=== PATIENT | male | born 1970 | race Caucasian/White ===

== ENCOUNTER 2020-07-13 16:00 | Observation (INO) | payer MEDICARE ==
[~2020-07-13] VITALS: Ht 170.2 cm; Wt 117.5 kg
[2020-07-13] MEDS ORDERED: SODIUM CHLORIDE 0.9% 1000ML 1,000 ML IV STA (16:38)
[2020-07-13 17:13] LABS: BASOPHILS % 0.2 % (0.0-1.0); EOSINOPHILS # (AUTO) 0.1 (0.0-0.4); HEMATOCRIT 50.1 % (38.2-49.6); LYMPHOCYTES % 10.3 % (18.0-39.1); MEAN CORPUSCULAR HGB CONC 33.9 g/dL (31-35); MEAN CORPUSCULAR VOLUME 94.4 fL (81-99); MONOCYTES % 10.3 % (4.4-11.3); NEUTROPHILS # (AUTO) 7.7 (2.1-6.9); NEUTROPHILS % 77.9 % (38.7-80.0); PLATELET COUNT 169 x10e3/uL (140-360); RED BLOOD COUNT 5.31 x10e6/uL (4.3-5.7); RED CELL DISTRIBUTION WIDTH 13.6 % (11.7-14.4)
[2020-07-13 17:26] LABS: INR 0.89; PROTHROMBIN TIME 12.5 seconds (11.9-14.5)
[2020-07-13 17:27] LABS: PARTIAL THROMBOPLASTIN TIME 30.3 seconds (23.8-35.5)
[2020-07-13 17:34] LABS: ALANINE AMINOTRANSFERASE 33 IU/L (0-55); ALKALINE PHOSPHATASE 83 IU/L (40-150); ANION GAP 20.8 mmol/L (8-16); BLOOD UREA NITROGEN 9 mg/dL (7-26); BUN/CREATININE RATIO 10 (6-25); CALCIUM 9.3 mg/dL (8.4-10.2); CARBON DIOXIDE 23 mmol/L (22-29); CHLORIDE 99 mmol/L (98-107); CREATINE KINASE 99 IU/L (30-200); CREATININE, SERUM 0.94 mg/dL (0.72-1.25); EST GLOMERULAR FILTRATION RATE > 60 ML/MIN (60-); GLUCOSE 89 mg/dL (74-118); POTASSIUM 4.8 mmol/L (3.5-5.1); SODIUM 138 mmol/L (136-145)
[2020-07-13] MEDS ORDERED: SODIUM CHLORIDE 0.9% 50ML 50 ML ONE (18:33)
[2020-07-13] MEDS ORDERED: IOPAMIDOL 370 MG/ML 200 ML INFUS..BTL INJ ONE (18:34)
[2020-07-13 18:47] LABS: BILIRUBIN,URINE SMALL (NEGATIVE); CLARITY,URINE SL CLOUDY (CLEAR); COLOR,URINE AMBER (YELLOW); KETONES,URINE TRACE (NEGATIVE); LEUKOCYTE ESTERASE ,URINE NEGATIVE (NEGATIVE); NITRITE,URINE NEGATIVE (NEGATIVE); PROTEIN,URINE DIPSTICK 1+ (NEGATIVE); URINE UROBILINOGEN 0.2 mg/dL (0.2 - 1)
--- NOTE | 2020-07-13 18:53 | Diagnostic Imaging Report ---
EXAM: CT Abdomen and Pelvis WITH contrast INDICATION: LOEWR ABD PAIN, GI BLEED COMPARISON: None. TECHNIQUE: Abdomen and pelvis were scanned utilizing a multidetector helical scanner from the lung base to the pubic symphysis after administration of IV contrast. Coronal and sagittal reformations were obtained. Dose modulation, iterative reconstruction, and/or weight based adjustment of the mA/kV was utilized to reduce the radiation dose to as low as reasonably achievable. Routine protocol was performed. Scan was performed when during portal venous phase. IV CONTRAST: 150 mL of Omnipaque 300 ORAL CONTRAST: Water COMPLICATIONS: None RADIATION DOSE: Total DLP: 849.13 mGy-cm Estimated effective dose: (DLP x 0.015 x size factor) mSv CTDIvol has been reviewed. It is below the limits set by the Radiation Protocol Committee (RPC). FINDINGS: LINES and TUBES: None. LOWER THORAX: Unremarkable HEPATOBILIARY: No focal hepatic lesions. No biliary ductal dilation. GALLBLADDER: No radio-opaque stones or sludge. No gallbladder wall thickening. SPLEEN: No splenomegaly. No focal splenic lesion. PANCREAS: No focal masses or ductal dilatation. ADRENALS: No adrenal nodules KIDNEYS/URETERS: Kidneys enhance symmetrically. No hydronephrosis. No cystic or solid mass lesions. No stones. GI TRACT: There is diffuse wall thickening of the colon with minimal adjacent stranding compatible with colitis. No abnormal distention or evidence of bowel obstruction. PELVIC ORGANS/BLADDER: The bladder is unremarkable. LYMPH NODES: No lymphadenopathy. VESSELS: No aortic aneurysm or dissection. PERITONEUM / RETROPERITONEUM: No free air or fluid. BONES: Unremarkable. SOFT TISSUES: Unremarkable. IMPRESSION: Diffuse wall thickening of the colon with minimal adjacent stranding compatible with colitis. Signed by: Jonny Mueller MD on 07/13/2020 6:50 PM
[2020-07-13 18:59] LABS: BACTERIA,URINE MODERATE /HPF; EPITHELIAL CELLS,URINE FEW /LPF
[2020-07-13 19:00] LABS: AMORPHOUS SEDIMENT,URINE MODERATE (FEW)
[2020-07-13] MEDS ORDERED: ONDANSETRON HCL INJ 2MG/ML 2ML 2 MG/ML VIAL IV PRN ×2 (19:30→22:45)
[2020-07-13] MEDS ORDERED: MORPHINE SULFATE INJ 4 MG/ML INJ 1ML IV PRN (19:30)
--- NOTE | 2020-07-13 19:37 | NUR ---
RECEIEVED PATIENT IN ROOM
[2020-07-13] MEDS ORDERED: PANTOPRAZOLE 40 MG 10ML VIAL IV STA (19:38)
[2020-07-13] MEDS ORDERED: ONDANSETRON HCL INJ 2MG/ML 2ML 2 MG/ML VIAL IV STA (19:39)
--- NOTE | 2020-07-13 19:52 | Emergency Department Note ---
History of Present Illnes History of Present Illness Chief Complaint: Abdominal Complaints History of Present Illness This is a 49 year old male DIARRHEA X 2 DAYS WITH LOWER QUADRANT PAIN, APPROX 7 EPISODES. 1 HR PRIOR TO ARRIVAL HAD BRIGHT RED BLOOD. DENIES ANY N/V. Historian: Patient Arrival Mode: Car Ticket Agent Required: No Onset (how long ago): day(s) (2) Location: ABDOMEN Quality: PAIN/CRAMPING WITH DIARRHEA Radiation: Reports non-radiation Severity: moderate Onset quality: gradual Timing of current episode: intermittent Progression: waxing and waning Chronicity: new Context: Denies recent illness Relieving factors: none Exacerbating factors: none Associated symptoms: Reports denies other symptoms Treatments prior to arrival: none Past Medical/Family History Physician Review I have reviewed the patient's past medical and family history. Any updates have been documented here. Past Medical History Recent Fever: No Clinical Suspicion of Infectio: No New/Unexplained Change in Ment: No Past Medical History: CHF, Hepatitis C, Kidney Stones Other Medical History: CIRRHOSIS COPD HEP C Other Surgery: LITHOTRYPSY Social History Smoking Cessation: Current every day smoker Counseling Performed: No Alcohol Use: Occasional Any Illegal Drug Use: No TB Exposure/Symptoms: No Physically hurt or threatened: No Family History Family history of heart diseas: No Other Any Pre-Existing Lines (PICC,: No Review of Systems Review of Systems Constitutional: Reports no symptoms EENTM: Reports no symptoms Cardiovascular: Reports no symptoms Respiratory: Reports no symptoms Gastrointestinal: Reports as per HPI Genitourinary: Reports no symptoms Musculoskeletal: Reports no symptoms Integumentary: Reports no symptoms Neurological: Reports no symptoms Psychological: Reports no symptoms Endocrine: Reports no symptoms Hematological/Lymphatic: Reports no symptoms Physical Exam Related Data Allergies: Coded Allergies: No Known Allergies (Unverified , 07/13/20) Triage Vital Signs Vital Signs Date Time Temp Pulse Resp B/P (MAP) Pulse Ox O2 Delivery O2 Flow Rate FiO2 07/13/20 16:30 98.8 99 18 142/102 98 Room Air Vital signs reviewed: Yes Physical Exam CONSTITUTIONAL Constitutional: Present well-developed, Present well-nourished HENT HENT: Present normocephalic, Present atraumatic, Present oropharynx clear/moist, Present nose normal HENT L/R: Present left ext ear normal, Present right ext ear normal EYES Eyes: Reports PERRL, Reports conjunctivae normal NECK Neck: Present ROM normal PULMONARY Pulmonary: Present effort normal, Present breath sounds normal CARDIOVASCULAR Cardiovascular: Present regular rhythm, Present heart sounds normal, Present capillary refill normal, Present normal rate GASTROINTESTINAL Abdominal: Present soft, Present nontender, Present bowel sounds normal, Prese nt tender (MILD LOWER ABD TENDERNESS WITHOUT R/G); Absent guarding, Absent rebound, Absent left CVA tenderness, Absent right CVA tenderness GENITOURINARY Genitourinary: Present exam deferred SKIN Skin: Present warm, Present dry MUSCULOSKELETAL Musculoskeletal: Present ROM normal NEUROLOGICAL Neurological: Present alert, Present oriented x 3, Present no gross motor or sensory deficits PSYCHOLOGICAL Psychological: Present mood/affect normal, Present judgement normal Results Laboratory Result Diagram: 07/13/20 1639 07/13/20 1639 Laboratory Laboratory Tests Test 07/13/20 16:48 07/13/20 16:39 Urine Color Lisseth (YELLOW) Urine Clarity Sl cloudy (CLEAR) Urine pH 6 (5 - 7) Urine Specific Clyman 1.025 (1.010-1.025) Urine Protein 1+ (NEGATIVE) Urine Glucose (UA) Negative (NEGATIVE) Urine Ketones Trace (NEGATIVE) Urine Blood Negative (NEGATIVE) Urine Nitrite Negative (NEGATIVE) Urine Bilirubin Small (NEGATIVE) Urine Urobilinogen 0.2 mg/dL (0.2 - 1) Urine Leukocyte Esterase Negative (NEGATIVE) Urine RBC None /HPF (0-5) Urine WBC None /HPF (0-5) Urine Epithelial Cells Few /LPF (NONE) Urine Amorphous Sediment Moderate (FEW) Urine Bacteria Moderate /HPF (NONE) Urine Sperm Present (NONE) White Blood Count 9.86 x10e3/uL (4.8-10.8) Red Blood Count 5.31 x10e6/uL (4.3-5.7) Hemoglobin 17.0 g/dL (14.0-18.0) Hematocrit 50.1 % (38.2-49.6) Mean Corpuscular Volume 94.4 fL (81-99) Mean Corpuscular Hemoglobin 32.0 pg (28-32) Mean Corpuscular Hemoglobin Concent 33.9 g/dL (31-35) Red Cell Distribution Width 13.6 % (11.7-14.4) Platelet Count 169 x10e3/uL (140-360) Neutrophils (%) (Auto) 77.9 % (38.7-80.0) Lymphocytes (%) (Auto) 10.3 % (18.0-39.1) Monocytes (%) (Auto) 10.3 % (4.4-11.3) Eosinophils (%) (Auto) 1.0 % (0.0-6.0) Basophils (%) (Auto) 0.2 % (0.0-1.0) Neutrophils # (Auto) 7.7 (2.1-6.9) Lymphocytes # (Auto) 1.0 (1.0-3.2) Monocytes # (Auto) 1.0 (0.2-0.8) Eosinophils # (Auto) 0.1 (0.0-0.4) Basophils # (Auto) 0.0 (0.0-0.1) Absolute Immature Granulocyte (auto 0.03 x10e3/uL (0-0.1) Prothrombin Time 12.5 seconds (11.9-14.5) Prothromb Time International Ratio 0.89 Activated Partial Thromboplast Time 30.3 seconds (23.8-35.5) Sodium Level 138 mmol/L (136-145) Potassium Level 4.8 mmol/L (3.5-5.1) Chloride Level 99 mmol/L (98-107) Carbon Dioxide Level 23 mmol/L (22-29) Anion Gap 20.8 mmol/L (8-16) Blood Urea Nitrogen 9 mg/dL (7-26) Creatinine 0.94 mg/dL (0.72-1.25) Estimat Glomerular Filtration Rate > 60 ML/MIN (60-) BUN/Creatinine Ratio 10 (6-25) Glucose Level 89 mg/dL (74-118) Calcium Level 9.3 mg/dL (8.4-10.2) Total Bilirubin 0.7 mg/dL (0.2-1.2) Aspartate Amino Transf (AST/SGOT) 47 IU/L (5-34) Alanine Aminotransferase (ALT/SGPT) 33 IU/L (0-55) Alkaline Phosphatase 83 IU/L (40-150) Creatine Kinase 99 IU/L (30-200) Creatine Kinase MB 1.40 ng/mL (0-5.0) Troponin I 0.015 ng/mL (0-0.300) Total Protein 7.9 g/dL (6.5-8.1) Albumin 4.0 g/dL (3.5-5.0) Globulin 3.9 g/dL (2.3-3.5) Albumin/Globulin Ratio 1.0 (0.8-2.0) Lab results reviewed: Yes Imaging Imaging results reviewed: Yes Assessment & Plan Medical Decision Making MDM ABD PAIN, DIARRHEA, BRBPR - CBC, CHEM, PT/PTT, UA, CT ABD/PELVIS - EVAL FOR SIGNIFICANT GI BLEED WITH ANEMIA, COAGULOPATHY, RENAL INSUFF, INCR LFT'S, COLITIS, DIVERTICULITIS, BOWEL OBSTRUCTION Reassessment Reassessment ADMIT TO [facility] (ON-CALL) Assessment & Plan Final Impression: (1) Colitis (2) GI bleed Depart Disposition: ADMITTED Last Vital Signs Date Time Temp Pulse Resp B/P (MAP) Pulse Ox O2 Delivery O2 Flow Rate FiO2 07/13/20 19:40 110 22 138/103 97 07/13/20 16:30 98.8 Room Air Medications in the ED Pantoprazole Sodium 80 mg ONCE STAT IV ; Start 07/13/20 at 19:38; Stop 07/13/20 at 19:39; Status DC Ondansetron HCl 4 mg ONCE STAT IV ; Start 07/13/20 at 19:39; Stop 07/13/20 at 19:40; Status DC Sodium Chloride 1,000 ml @ 0 mls/hr Q0M STAT IV ; Start 07/13/20 at 16:38; Stop 07/13/20 at 16:44; Status DC Sodium Chloride 50 ml @ ud STK-MED ONCE .ROUTE ; Start 07/13/20 at 18:33; Stop 07/13/20 at 18:28; Status DC Iopamidol 74,000 mg STK-MED ONCE INJ ; Start 07/13/20 at 18:34; Stop 07/13/20 at 18:28; Status DC Piperacillin Sod/ Tazobactam Sod 50 ml @ 100 mls/hr 0200,0800,1400,2000 IV ; Start 07/13/20 at 20:00; Stop 07/20/20 at 19:59 Metronidazole/ Sodium Chloride 100 ml @ 100 mls/hr Q6H IV ; Start 07/13/20 at 19:30; Stop 07/20/20 at 19:29; Status UNV Sodium Chloride 1,000 ml @ 100 mls/hr Q10H IV ; Start 07/13/20 at 19:30; Stop 08/12/20 at 19:29 Morphine Sulfate 4 mg Q4H PRN IV SEVERE PAIN (7-10); Start 07/13/20 at 19:30; Stop 07/20/20 at 19:29; Status UNV Ondansetron HCl 4 mg Q4H PRN IV NAUSEA; Start 07/13/20 at 19:30; Stop 08/12/20 at 19:29 Pantoprazole Sodium 40 mg Q12HR IV ; Start 07/13/20 at 21:00; Stop 08/12/20 at 20:59 BRANDIN ALEGRIA MD Jul 13, 2020 19:52
[2020-07-13] MEDS ORDERED: PIPER-TAZ 3.375 GM 50 ML IV SCH (20:00)
[2020-07-13] MEDS: PANTOPRAZOLE 40 MG 10ML VIAL IV SCH (20:24)
--- OUTSIDE RECORDS SUMMARY | 2020-07-13 20:26 | XMS REPORT | Continuity of Care Document ---
Author Author [facility] t Organization [facility] Address [address] [place] [address] Dr. Guerra [address] [place] [phone] Phone Unavailable Care Team Providers Care Shove Up Name Role Phone Juan C ALEGRIA Attphys Unavailable Problems This patient has no known problems. Allergies, Adverse Reactions, Alerts This patient has no known allergies or adverse reactions. Medications This patient has no known medications. Procedures This patient has no known procedures. Results Test Description Test Time Test Comments Results Result Comments Source CT ABDOMEN/PELVIS W 2020-07-13 18:47:00 [place] [address] Patient Name: CAMILA GONSALVES MR #: [id number] : 1970 Age/Sex: 49/M Req #: [id number] Adm Physician: Ordered by: BRANDIN ALEGRIA MD Report #: [id number] Location: ER Room/Bed: Procedure: [id number] CT/CT ABDOMEN/PELVIS W Exam Date: 07/13/20 Exam Time: 1813 REPORT STATUS: Signed EXAM: CT Abdomen and Pelvis WITH contrast INDICATION: LOEWR ABD PAIN, GI BLEED COMPARISON: None. TECHNIQUE: Abdomen and pelvis were scanned utilizing a multidetector helical scanner from the lung base to the pubic symphysis after administration of IV contrast. Coronal and sagittal reformations were obtained. Dose modulation, iterative reconstruction, and/or weight based adjustment of the mA/kV was utilized to reduce the radiation dose to as low as reasonably achievable. Routine protocol was performed. Scan was performed when during portal venous phase. IV CONTRAST: 150 mL of Omnipaque 300 ORAL CONTRAST: Water COMPLICATIONS: None RADIATION DOSE: Total DLP: 849.13 mGy-cm Estimated effective dose: (DLP x 0.015 x size factor) mSv CTDIvol has been reviewed. It is below the limits set by the Radiation Protocol Committee (RPC). FINDINGS: LINES and TUBES: None. LOWER THORAX: Unremarkable HEPATOBILIARY: No focal hepatic lesions. No biliary ductal dilation. GALLBLADDER: No radio-opaque stones or sludge. No gallbladder wall thickening. SPLEEN: No splenomegaly. No focal splenic lesion. PANCREAS: No focal masses or ductal dilatation. ADRENALS: No adrenal nodules KIDNEYS/URETERS: Kidneys enhance symmetrically. No hydronephrosis. No cystic or solid mass lesions. No stones. GI TRACT: There is diffuse wall thickening of the colon with minimal adjacent stranding compatible with colitis. No abnormal distention or evidence of bowel obstruction. PELVIC ORGANS/BLADDER: The bladder is unremarkable. LYMPH NODES: No lymphadenopathy. VESSELS: No aortic aneurysm or dissection. PERITONEUM / RETROPERITONEUM: No free air or fluid. BONES: Unremarkable. SOFT TISSUES: Unremarkable. IMPRESSION: Diffuse wall thickening of the colon with minimal adjacent stranding compatible with colitis. Signed by: Jonny Crespo MD on 07/13/2020 6:50 PM Dictated By: JONNY CRESPO MD 49 Transcribed By: DEX on 07/13/201849 COPY TO: BRANDIN ALEGRIA MD
--- NOTE | 2020-07-13 21:10 | NUR ---
RECEIVED REPORT FROM DANYELL GUNTER RN, PATIENT AOX3, PENDING ARRIVAL TO THE FLOOR FROM ER, C/O AB PAIN X 3 DAYS, BLOODY DIARRHEA, POSS GI BLEED
--- NOTE | 2020-07-13 21:30 | NUR ---
PATIENT ARRIVED TO THE FLOOR VIA WHEELCHAIR ESCORTED BY CEMETERY WORKERREFUGIO CHILD, PATIENT AOX4, NO DISTRESS NOTED, NO TELEMETRY IN PLACE, CARDIAC ENZYMES x 1 NEGATIVE, DENIES CHEST PAIN, C/O AB PAIN 02/20, SKIN WARM DRY INTAC, ORIENTED TO STAFF, POLICIES AND ROOM, CALL LIGHT WITHIN REACH, IV PATENT RAC #20G, FLUSHES WELL
[2020-07-13] MEDS: METRONIDAZOLE 500MG/NS 100ML 100 ML IV SCH (21:59)
[2020-07-13] MEDS: SODIUM CHLORIDE 0.9% 1000ML 1,000 ML IV SCH (21:59)
[2020-07-13 22:15] VITALS: BP 133/90
[2020-07-13] MEDS ORDERED: DOCUSATE SODIUM 100 MG CAP PO PRN (22:45)
[2020-07-13] MEDS ORDERED: HYDRALAZINE HCL 20 MG/ML VIAL IV PRN (22:45)
[2020-07-13] MEDS ORDERED: ACETAMINOPHEN 325 MG TAB PO PRN (22:45)
[2020-07-13] MEDS ORDERED: MELATONIN 5 MG TABLET PO PRN (22:45)
[2020-07-13 22:55] VITALS: BP 133/90
[2020-07-13 22:56] VITALS: BP 133/90
--- NOTE | 2020-07-13 23:00 | NUR ---
MD SUN CONSULTED FOR PT
[2020-07-13] MEDS: CIPROFLOXACIN 400 MG/D5W 200ML 200 ML IV SCH (23:21)
[2020-07-14] VITALS (9 sets, daily range): BP systolic 119–142; BP diastolic 89–103
[2020-07-14] MEDS: METRONIDAZOLE 500MG/NS 100ML 100 ML IV SCH ×4 (03:30→20:45)
[2020-07-14] MEDS: SODIUM CHLORIDE 0.9% 1000ML 1,000 ML IV SCH ×2 (03:45→17:11)
[2020-07-14] MEDS ORDERED: CITRATE OF MAGNESIA 300ML BOTTLE PO ONE ×2 (05:00→07:00)
--- NOTE | 2020-07-14 05:00 | NUR ---
bowel prep started per MD SUN order, first bottle of mag citrate given PO, pt cooperative with plan of care, tolerated well, reported BM still brown and runny
[2020-07-14 05:26] LABS: BASOPHILS % 0.2 % (0.0-1.0); EOSINOPHILS # (AUTO) 0.1 (0.0-0.4); EOSINOPHILS % 0.8 % (0.0-6.0); HEMATOCRIT 46.8 % (38.2-49.6); HEMOGLOBIN 15.7 g/dL (14.0-18.0); LYMPHOCYTES # (AUTO) 0.6 (1.0-3.2); MEAN CORPUSCULAR HEMOGLOBIN 32.5 pg (28-32); MEAN CORPUSCULAR HGB CONC 33.5 g/dL (31-35); MEAN CORPUSCULAR VOLUME 96.9 fL (81-99); MONOCYTES # (AUTO) 1.1 (0.2-0.8); MONOCYTES % 12.4 % (4.4-11.3); NEUTROPHILS % 79.4 % (38.7-80.0); PLATELET COUNT 144 x10e3/uL (140-360); RED BLOOD COUNT 4.83 x10e6/uL (4.3-5.7); RED CELL DISTRIBUTION WIDTH 13.3 % (11.7-14.4)
[2020-07-14 05:51] LABS: ALANINE AMINOTRANSFERASE 26 IU/L (0-55); ALKALINE PHOSPHATASE 73 IU/L (40-150); ANION GAP 14.1 mmol/L (8-16); BLOOD UREA NITROGEN 7 mg/dL (7-26); BUN/CREATININE RATIO 8 (6-25); CALCIUM 8.6 mg/dL (8.4-10.2); CARBON DIOXIDE 21 mmol/L (22-29); CHLORIDE 104 mmol/L (98-107); CREATININE, SERUM 0.84 mg/dL (0.72-1.25); EST GLOMERULAR FILTRATION RATE > 60 ML/MIN (60-); GLUCOSE 117 mg/dL (74-118); POTASSIUM 3.1 mmol/L (3.5-5.1); SODIUM 136 mmol/L (136-145)
--- NOTE | 2020-07-14 07:00 | NUR ---
bowel prep continued for possible colonoscopy today with MD Cline, pt educated on bowel prep, endorsed to dayshift RN to continue monitoring, consent signed and placed in chart
[2020-07-14 07:37] LABS: ALBUMIN 4.2 g/dL (3.5-5.0); ALBUMIN/GLOBULIN RATIO 1.8 (0.8-2.0)
[2020-07-14] MEDS: PANTOPRAZOLE 40 MG 10ML VIAL IV SCH ×2 (10:01→20:46)
[2020-07-14] MEDS: CIPROFLOXACIN 400 MG/D5W 200ML 200 ML IV SCH ×2 (10:45→22:45)
--- NOTE | 2020-07-14 13:46 | NUR ---
pt off unit for procedure.
[2020-07-14] MEDS ORDERED: POTASSIUM CHLORIDE 20 MEQ TAB CR PO ONE (15:15)
--- NOTE | 2020-07-14 16:13 | Diagnostic Imaging Report ---
EXAM: US ABDOMEN LIMITED DATE: 07/14/2020 1:59 PM INDICATION: ^CIRRHOSIS COMPARISON: CT dated 07/13/2020 TECHNIQUE: Transverse and longitudinal daniel scale and color doppler sonographic images of the right upper quadrant were obtained. FINDINGS: LIVER 18.6 cm in the right midclavicular line. Liver is diffusely echogenic with normal contour, no masses. GALLBLADDER No gallbladder wall thickening, distension, stone, or pericholecystic fluid. Negative reported sonographic Ramsey's sign. BILE DUCTS No intra nor extra-hepatic biliary dilation. Common bile duct measures 0.3cm PANCREAS: Limited visualization RIGHT KIDNEY: 11.3 cm Echogenicity: Normal Collecting System: No hydronephrosis Stones: None Cyst/Mass: None VESSELS: Aorta: Visualized portions are within normal size limits Inferior Vena Cava: Visualized portions are normal Main Portal Vein: 1.0 cm, normal size with hepatopetal flow. FREE FLUID: None IMPRESSION: 1. Echogenic enlarged liver can be seen in patients with hepatic steatosis. No suspicious mass. 2. Negative for cholelithiasis or biliary dilatation. Signed by: Alex Campos MD on 07/14/2020 4:09 PM
[2020-07-14 16:26] LABS: WBC,FECAL (FECAL LACTOFERRIN) POSITIVE (NEGATIVE)
--- NOTE | 2020-07-14 16:33 | Operative Report ---
DATE OF PROCEDURE: 07/14/2020 SURGEON: Elliott Cline MD PROCEDURE: Colonoscopy with polypectomy and biopsies. INDICATIONS FOR COLONOSCOPY: Rectal bleeding, diarrhea. MEDICATIONS: The patient was done under MAC, please see anesthesiologist's note. PROCEDURE IN DETAIL: With the patient in the left lateral decubitus position, a flexible fiberoptic Olympus colonoscope was inserted into the rectum with ease and advanced all the way to the cecum. Prep overall was suboptimal, but visualization was fair. Due to the patient's severe obstructive apnea and desaturation, exam overall was suboptimal. The scope was then withdrawn slowly, whatever was visualized the mucosa overlying the cecum, ascending colon, and transverse colon grossly appeared to be unremarkable. There was some patchy mild inflammatory changes in the left colon and random biopsies were obtained. Two polyps were hot snared and one polyp was hot biopsied from the descending colon. One polyp was hot snared from the rectosigmoid area. More prominent inflammatory findings were noted in the rectum and biopsies were obtained. The scope was then retroflexed into the distal rectum and small internal hemorrhoids were noted, none of which was actively bleeding. The scope was then straightened out, it was subsequently withdrawn, and the patient tolerated the procedure well. IMPRESSION: 1. Suboptimal prep, visualization was fair. Exam overall suboptimal, as the patient was desatting during the procedure due to his severe obstructive apnea. 2. Descending colon polyps x3, two hot snared and one hot biopsied. 3. Mild patchy inflammatory changes, left colon, random biopsies obtained. 4. Rectosigmoid polyp, hot snared. 5. Proctitis. 6. Internal hemorrhoids, none actively bleeding. PLAN: Follow up histology. Follow up stool studies. The patient might benefit from a followup colonoscopy in 1 to 2 years. Elliott Cline MD [facility] /[id number] cc: Joann Mcclain MD
--- NOTE | 2020-07-14 16:36 | NUR ---
pr returned to unit from procedure. alert resp even and unlabored at this time.
[2020-07-14] MEDS ORDERED: MIDAZOLAM HCL 2 MG/2 ML VIAL ONE (17:35)
[2020-07-14] MEDS ORDERED: FENTANYL CITRATE/PF 100MCG/2 ML INJ ONE (17:35)
[2020-07-14] MEDS ORDERED: NAPROSYN500 MG PO (18:13)
[2020-07-14] MEDS ORDERED: LYRICA25 MG PO (18:13)
[2020-07-14] MEDS ORDERED: ATORVASTATIN CA10 MG PO (18:13)
[2020-07-14] MEDS ORDERED: SPIRONOLACTONE25 MG PO (18:13)
[2020-07-14] MEDS ORDERED: LISINOPRIL5 MG PO (18:13)
[2020-07-14] MEDS ORDERED: ALLOPURINOL100 MG PO (18:13)
[2020-07-14] MEDS ORDERED: SEROQUEL25 MG PO (18:13)
[2020-07-14] MEDS ORDERED: COREG12.5 MG PO (18:13)
[2020-07-14] MEDS ORDERED: TIZANIDINE HCL4 MG PO (18:13)
[2020-07-14] MEDS ORDERED: OMEPRAZOLE40 MG PO (18:13)
[2020-07-14] MEDS ORDERED: FLOMAX0.4 MG PO (18:13)
[2020-07-14] MEDS ORDERED: FLUOXETINE HCL20 M1 PO (18:13)
--- NOTE | 2020-07-14 21:00 | NUR ---
INITIAL ASSESSMENT COMPLETE, PT IN BED, NO DISTRESS NOTED, NO PAIN NOTED, VS WNL, CALL LIGHT IN REACH, ABLE TO GO TO BATHROOM WITHOUT ASSIST, NO OTHER NEEDS AT THIS TIME
[2020-07-14] MEDS ORDERED: LIDOCAINE HCL 2% LOCAL INJ 5 ML SDV VIAL INJ ONE (21:18)
[2020-07-14] MEDS ORDERED: PROPOFOL IV EMULSION 10 MG/ML 20 ML VIAL ONE (21:18)
[2020-07-14] MEDS ORDERED: GLUCAGON FOR INJ 1 MG VIAL ONE (21:18)
[2020-07-15] VITALS: BP 136/99
--- NOTE | 2020-07-15 | NUR ---
vs wnl, call light in reach, pt asleep but easily arroused
[2020-07-15] MEDS: METRONIDAZOLE 500MG/NS 100ML 100 ML IV SCH ×2 (03:00→09:43)
[2020-07-15 04:00] VITALS: BP 137/98
--- NOTE | 2020-07-15 04:20 | History and Physical ---
The patient was seen and evaluated only this afternoon at approximately 12:30 p.m. CHIEF COMPLAINT: Diarrhea and abdominal pain. HISTORY OF PRESENT ILLNESS: A 49-year-old morbidly obese male, who presented to the ED with complaints of underlying diarrhea and lower quadrant abdominal pain ongoing for the last 2 days. He reports having some bright red blood per rectum. Denies any nausea or vomiting, chest pain or any palpitations. No fever. The patient came into the ED for evaluation and management. REVIEW OF SYSTEMS: Pertinent positives: Decreased oral intake, rectal bleeding, abdominal pain. The rest of the 14-point review of systems have been reviewed with the patient and are negative. ALLERGIES: HE NO KNOWN DRUG ALLERGIES. HOME MEDICATIONS: 1. Allopurinol. 2. Lipitor. 3. Coreg. 4. Fluoxetine. 5. Lisinopril. 6. Naproxen. 7. Omeprazole. 8. Lyrica. 9. Seroquel. 10. Aldactone. 11. Tamsulosin. 12. Tizanidine. PAST MEDICAL HISTORY: Depression, anxiety, hypertension, morbidly obese, hyperlipidemia, BPH, hypoglycemia. PAST SURGICAL HISTORY: Reports none. FAMILY HISTORY: Hypertension and diabetes. SOCIAL HISTORY: No drugs. No alcohol. Does not smoke. Good social support. PHYSICAL EXAMINATION: VITAL SIGNS: Temperature is 98.6, pulse 91, respirations 20, blood pressure is 119/77 pulse ox 96% on room air. GENERAL: Not in acute distress. Alert and oriented x3. Cooperative on examination. PULMONARY: Clear to auscultation bilaterally. No wheezing, no rales, no rhonchi, no crackles appreciated. CARDIOVASCULAR: Positive S1 and S2. No murmurs, rubs, or gallops appreciated. ABDOMEN: Soft, nondistended, and nontender to palpation. Bowel sounds present. MUSCULOSKELETAL: Strength is 5/5 throughout. No evidence of any muscle deficits on examination. No weakness appreciated. NEUROLOGIC: Cranial nerve II through XII grossly intact. No evidence of any neurological deficits on exam. SKIN: Intact. Warm to touch. Good cap refill. PSYCHIATRIC: Normal affect and mood. EXTREMITIES: No edema. Good range of motion throughout. LABORATORY DATA: CBC; , hemoglobin 15, hematocrit 46, platelets of 144. Chemistry; sodium 136, potassium 3.1 replaced, chloride 104, bicarb 21, anion gap of . LFTs within normal range. Albumin is 4.2. Urinalysis noted. Coronavirus pending. pending. MICROBIOLOGY: Stool ova and parasites pending. Urine cultures, no growth. IMAGING STUDIES: Diffuse wall thickening of the colon with analgesics stranding compatible with colitis. Abdominal ultrasound shows echogenic enlargement consistent with the patient's hepatosteatosis. no suspicious mass. Negative for cholelithiasis with no obstruction. IMPRESSION: 1. Abdominal pain with acute diffuse colitis. 2. Hypertension. 3. Morbidly obese. 4. History of depression/anxiety. PLAN: IV fluids, pain control, IV antibiotics. GI consultation. The patient did undergo a colonoscopy, which I evaluated the patient after colonoscopy shows sigmoid colitis and some polyps were snared. The patient will go to the medical floor. Continue on regular diet. Resume same home medications. P.r.n. hydralazine. Lovenox for DVT prophylaxis. Discharge home tomorrow. Discussed plan of care with GI. MD ИРИНА Eric/QUANGL /[id number]
--- NOTE | 2020-07-15 06:13 | NUR ---
pt in bed, awake, call light in reach, no distress noted
[2020-07-15 07:28] VITALS: BP 133/101
[2020-07-15 07:49] VITALS: BP 133/101
[2020-07-15] MEDS ORDERED: QUETIAPINE FUMARATE 25 MG TAB PO SCH (09:00)
[2020-07-15] MEDS ORDERED: FLUOXETINE HCL 20 MG CAP PO SCH (09:00)
[2020-07-15] MEDS ORDERED: ALLOPURINOL 100 MG TAB PO SCH (09:00)
[2020-07-15] MEDS ORDERED: TAMSULOSIN HCL 0.4 MG CAP PO SCH (09:00)
[2020-07-15] MEDS ORDERED: LISINOPRIL 2.5 MG TAB PO SCH (09:00)
[2020-07-15] MEDS ORDERED: PREGABALIN 25 MG CAP PO SCH (09:00)
[2020-07-15 09:43] LABS: C DIFFICILE TOXIN A&B AMP PROB NEGATIVE (NEGATIVE)
[2020-07-15] MEDS: SODIUM CHLORIDE 0.9% 1000ML 1,000 ML IV SCH ×2 (09:43→11:55)
[2020-07-15] MEDS: PANTOPRAZOLE 40 MG 10ML VIAL IV SCH (09:43)
[2020-07-15] MEDS: CIPROFLOXACIN 400 MG/D5W 200ML 200 ML IV SCH (09:44)
[2020-07-15 11:26] VITALS: BP 132/91
[2020-07-15] MEDS ORDERED: ONDANSETRON HCL 4 MG ORAL DISINTEGRATING TAB PO PRN (11:30)
[2020-07-15 12:07] LABS: ANION GAP 14.8 mmol/L (8-16); BLOOD UREA NITROGEN < 5 mg/dL (7-26); CALCIUM 8.7 mg/dL (8.4-10.2); CARBON DIOXIDE 21 mmol/L (22-29); CHLORIDE 107 mmol/L (98-107); CREATININE, SERUM 0.76 mg/dL (0.72-1.25); EST GLOMERULAR FILTRATION RATE > 60 ML/MIN (60-); GLUCOSE 97 mg/dL (74-118); POTASSIUM 3.8 mmol/L (3.5-5.1); SODIUM 139 mmol/L (136-145)
[2020-07-15 12:08] LABS: BUN/CREATININE RATIO 7 (6-25)
[2020-07-15] MEDS ORDERED: METRONIDAZOLE 500 MG TAB PO SCH (13:00)
--- NOTE | 2020-07-15 13:42 | NUR ---
Patient received a discharge order from Dr. Mcclain once cleared by GI --Dr. Shayy Cline. Patient was given 2 oral antibiotics. Patient was given discharge instructions, education, and prescriptions. Patient verbalized understanding. Patient IV removed at 1310, covered with a C/D/I dressing. Patient wheeled to car at 1331. Patient had no issues or complaints.
--- NOTE | 2020-07-15 15:13 | Progress Note ---
DATE: 07/14/2020 Medicine Progress Note SUBJECTIVE: The patient seems to be occasionally confused. He does not make sense. OBJECTIVE: GENERAL: he was stable. He is alert, awake, and oriented x2. VITAL SIGNS: He is afebrile, normotensive. Respiratory rate is good. He is on room air. LABORATORY DATA: Labs showed CBC stable. Chemistry reviewed shows a potassium 3.1 replaced. Coagulation normal. Urinalysis negative. Coronavirus pending. C diff pending. MICROBIOLOGY: Parasites are pending. Urine culture shows no growth. DIAGNOSTIC STUDIES: Abdominal ultrasound shows steatosis. No suspicious mass. Negative for cholelithiasis or biliary dilatation. DICTATION ENDS HERE MD ИРИНА Eric/QUANGL /[id number]
[2020-07-15] MEDS ORDERED: PANTOPRAZOLE SOD 40 MG TABEC PO SCH (21:00)
[2020-07-15] MEDS ORDERED: CIPROFLOXACIN 500 MG TAB PO SCH (21:00)
[2020-07-15] MEDS ORDERED: ATORVASTATIN 10 MG TAB PO SCH (21:00)
--- NOTE | 2020-07-16 04:31 | Discharge Summary ---
FINAL DISCHARGE DIAGNOSES: 1. Abdominal pain with acute diffuse colitis, status post colonoscopy with polyps snared and sigmoid diverticulitis. 2. Hypertension. 3. Morbidly obese. 4. History of depression and anxiety. VITAL SIGNS: Temperature is 97.8, pulse 89, respiratory rate 17, blood pressure 132/91, pulse ox 100% on room air. LABORATORY DATA: Show white count 8.8, hemoglobin 15, hematocrit is 46, and platelets of 144. Chemistry; sodium 139, potassium 3.8, chloride 107, bicarb 21, anion gap of 14, BUN is 5, creatinine is 0.76. LFTs within normal range. Troponins were negative. Total protein 6.5. Coagulation; PT 12, INR 0.89, PTT 30. Urinalysis seems to be negative. Stool lactoferrin positive. Stool calprotectin is pending. Coronavirus not detected. C diff negative. Ova, parasites, and Giardia were all pending. Stool cultures and urine cultures, no growth to date. IMAGING STUDIES: CT abdomen and pelvis, diffuse wall thickening of the colon with minimal adjacent stranding, compatible with colitis. Abdominal ultrasound, echogenic enlarged liver can be seen in the patients with hepatic steatosis. No suspicious mass. Negative for cholelithiasis or biliary dilatation. HOSPITAL COURSE: A 49-year-old male, morbidly obese, came into the ED with complaints of abdominal pain, found to have diffuse colitis seen on imaging studies. The patient maintained on IV antibiotic therapy and GI was consulted. The patient underwent status post colonoscopy, that showed evidence of a sigmoid colitis as well as some polyps that were snared. The patient did well postprocedure with no complaints. In fact, his abdominal pain resolved. He maintained on IV antibiotics. He will follow up with GI in 2 weeks' time in terms of pathology results. The patient was discharged on oral antibiotics. The patient was stable, back to normal baseline. On the day of discharge, vital signs were stable, labs reviewed and stable. The patient is seen and evaluated and examined thoroughly on the day of discharge with no other complaints. The patient verbalized understanding and agrees to plan of care for followup as an outpatient with the primary care physician in 1 week and GI specialist in 2 weeks' time. MEDICATIONS: See med reconciliation form. DISPOSITION: Home. CONDITION: Stable. DIET: Heart healthy. In the event of worsening symptoms, the patient was advised to come back to the ED for further evaluation. Discharge summary took greater than 35 minutes. MD ИРИНА Eric/TABATHA /[id number]
== END 2020-07-15 13:31 | disposition home or self-care (01) ==
LOC: ER 16:10 → ERHOLD 20:23 → MED/SURG2 21:21
PROVIDERS: ADMIT Internal Medicine; ATTEND Internal Medicine
DX: K52.9 Noninfective gastroenteritis and colitis, unspecified (principal); D12.4 Benign neoplasm of descending colon; K63.0 Abscess of intestine; K62.89 Other specified diseases of anus and rectum; K64.9 Unspecified hemorrhoids; Z11.59 Encounter for screening for other viral diseases; E66.01 Morbid (severe) obesity due to excess calories; Z68.41 Body mass index [BMI] 40.0-44.9, adult
CPT/HCPCS: 36415 ×3; 45384; 74177; 76705; 80048; 80053 ×2; 81001; 82550; 82553; 83630; 83993; 84484; 85025 ×2; 85610; 85730; 86850; 86900; 87045; 87086; 87177; 87328; 87493; 87521; 88305; 96361; 99284; C9113 ×3; G0378 ×3; J0744 ×3; J1610; J2001; J2250; J2270; J2543; J2704; J3010; J7030 ×2; Q9967; U0002; 45380; 45385

== ENCOUNTER → 2020-10-02 | Day surgery (SDC) | payer OTHER, MEDICARE ==
[2020-09-29 09:56] LABS: BASOPHILS % 0.4 % (0.0-1.0); EOSINOPHILS # (AUTO) 0.2 (0.0-0.4); EOSINOPHILS % 1.5 % (0.0-6.0); HEMATOCRIT 50.4 % (38.2-49.6); HEMOGLOBIN 17.2 g/dL (14.0-18.0); LYMPHOCYTES # (AUTO) 1.4 (1.0-3.2); MEAN CORPUSCULAR HEMOGLOBIN 32.2 pg (28-32); MEAN CORPUSCULAR HGB CONC 34.1 g/dL (31-35); MEAN CORPUSCULAR VOLUME 94.4 fL (81-99); MONOCYTES # (AUTO) 1.1 (0.2-0.8); MONOCYTES % 10.5 % (4.4-11.3); NEUTROPHILS # (AUTO) 7.8 (2.1-6.9); PLATELET COUNT 170 x10e3/uL (140-360); RED BLOOD COUNT 5.34 x10e6/uL (4.3-5.7); RED CELL DISTRIBUTION WIDTH 13.2 % (11.7-14.4)
[~2020-10-02] MED LIST: ALBUTEROL0.63 MG/3; ALLOPURINOL100 MG PO; ATORVASTATIN CA10 MG PO; BREO ELLIPTA 11 EACH; COREG12.5 MG PO; FLOMAX0.4 MG PO; FLUOXETINE HCL20 M1 PO; HYOSCYAMINE 0.125 MG TAB ONE; KETAMINE HCL INJ 50 MG/ML 10 ML VIAL ONE; LIDOCAINE HCL 2% LOCAL INJ 5 ML SDV VIAL INJ ONE; LISINOPRIL5 MG PO; LYRICA25 MG PO; MIDAZOLAM HCL 2 MG/2 ML VIAL ONE; NAPROSYN500 MG PO; OMEPRAZOLE40 MG PO; PROPOFOL IV EMULSION 10 MG/ML 20 ML VIAL ONE; SEROQUEL25 MG PO; SPIRONOLACTONE25 MG PO; TIZANIDINE HCL4 MG PO
[2020-10-02 12:45] VITALS: BP 121/88
--- NOTE | 2020-10-02 13:13 | Operative Report ---
DATE OF PROCEDURE: 10/02/2020 SURGEON: Elliott Cline MD PROCEDURE: Colonoscopy note. INDICATIONS FOR PROCEDURE: Personal history of colon polyps, suboptimal prep on recent colonoscopy. MEDICATIONS: The patient was done under MAC, please see anesthesiologist's note. PROCEDURE IN DETAIL: With the patient in left lateral decubitus position, a flexible fiberoptic Olympus colonoscope was inserted into the rectum with ease and advanced all the way to the cecum. It was then withdrawn slowly, mucosa overlying the cecum, ascending colon, transverse colon, descending, sigmoid, and rectum grossly appeared to be within normal limits. Of note, the left colon was excessively spastic and irritable. The scope was then retroflexed into the distal rectum and small internal hemorrhoids were noted, none of which was actively bleeding. The scope was then straightened out, it was subsequently withdrawn. The patient tolerated the procedure well. IMPRESSION: 1. Colon excessively spastic and irritable. 2. Internal hemorrhoids, none actively bleeding. PLAN: 1. Initiate high-fiber, low-fat diet. 2. Initiate high-fiber supplement. 3. The patient might benefit from a followup colonoscopy in 3 years. Elliott Cline MD [facility] [place]/TABATHA /[id number] cc: DR. NOAH Becker, PA
== END | disposition home or self-care (01) ==
LOC: OR 10:46
PROVIDERS: ATTEND Internal Medicine Gastroenterology
DX: K52.9 Noninfective gastroenteritis and colitis, unspecified (principal); Z86.010 Personal history of colon polyps; K64.8 Other hemorrhoids; G47.33 Obstructive sleep apnea (adult) (pediatric); E78.00 Pure hypercholesterolemia, unspecified; I10 Essential (primary) hypertension; J44.9 Chronic obstructive pulmonary disease, unspecified; I11.0 Hypertensive heart disease with heart failure; I50.9 Heart failure, unspecified; K74.60 Unspecified cirrhosis of liver; N20.0 Calculus of kidney; F17.210 Nicotine dependence, cigarettes, uncomplicated; Z68.41 Body mass index [BMI] 40.0-44.9, adult; Z86.19 Personal history of other infectious and parasitic diseases; Z80.0 Family history of malignant neoplasm of digestive organs
CPT/HCPCS: 36415; 45378; 85025; 93005; J2001; J2250; J2704; U0002